=== PATIENT | female | born 1990 | race Caucasian/White ===

== ENCOUNTER 2016-12-25 15:00 | Emergency (ER) | payer OTHER ==
[~2016-12-25] VITALS: Ht 167.6 cm; Wt 85.0 kg
[2016-12-25 17:31] LABS: UA SPECIFIC GRAVITY 1.015 (1.005-1.035); microscopic required? YES; urine erythrocyte 3+ (NEGATIVE)
[2016-12-25 17:33] LABS: BASOPHIL % 0.4 % (0-2); PLATELET COUNT 314 x10^3mcL (130-400)
[2016-12-25 18:10] VITALS: BP 121/86
== END 2016-12-25 19:23 | disposition home or self-care (01) ==
LOC: ED 15:00
PROVIDERS: Emergency Medicine
DX: O46.92 Antepartum hemorrhage, unspecified, second trimester (principal); O26.892 Other specified pregnancy related conditions, second trimester; I10 Essential (primary) hypertension; R10.30 Lower abdominal pain, unspecified; Z3A.15 15 weeks gestation of pregnancy